=== PATIENT | female | born 1935 | race Caucasian/White ===

== ENCOUNTER 2017-01-16 17:00 | Inpatient (IN) ==
--- NOTE | 2017-01-16 17:36 | PROVIDER DOCUMENTATION ---
This chart was entered by Rufina Martinez Scribe, acting as scribe for Max Ruth MD. HPI-Neurological Disorder - General Source: EMS - History of Present Illness-Neuro Headache Location: denies: frontal, temporal, occipital, parietal, global Severity: reports: moderate Onset/Duration: reports: just prior to arrival Timing: reports: still present Context: reports: other (AMS and LUE weakness) Character of Altered Mental Status: reports: confused Any recent trauma/injury?: reports: none Character of Deficits: reports: new weakness (LUE), vision problem/glaucoma ( decreased vision in left eye) New weakness or altered sensation location:: reports: LUE Cognitive Baseline: other (unknown) Gait Baseline: walks without assistance Associated Symptoms: reports: vision changes (decreased vision in left eye), weakness (LUE), other (AMS). denies: short of breath, headache, decreased ability to walk or stand, fainting, dizziness, confusion, chest pain, neck/back pain, fatigue, fever/chills, insomnia, loss of consciousness, muscle spasms, nausea, numbness in legs/feet, paresthesia, diaphoretic, ringing in ears, seizures, sleepy, slurred speech, tingling in legs/feet, trouble walking, vomiting Similar Symptoms Previously?: No Recently seen or treated by another doctor?: No <Max Ruth - Last Filed: 01/16/17 17:44> <Broderick Arango I - Last Filed: 01/16/17 20:15> - General Stated Complaint: AMS Time Seen by Provider: 01/16/17 17:12 Allergies/Adverse Reactions: Patient Allergies Allergy/AdvReac Type Severity Reaction Status Date / Time acetaminophen [From MIDRIN] Allergy Severe ANAPHYLAXIS Verified 01/16/17 17:14 aspirin Allergy Severe ANAPHYLAXIS Verified 01/16/17 17:14 Penicillins Allergy Severe ANAPHYLAXIS Verified 01/16/17 17:14 Cephalosporins Allergy Unknown Unknown Verified 01/16/17 17:14 dichloralphenazone Allergy Unknown Unknown Verified 01/16/17 17:14 [From MIDRIN] divalproex sodium Allergy Unknown Unknown Verified 01/16/17 17:14 [From Depakote] eszopiclone [From Lunesta] Allergy Unknown Unknown Verified 01/16/17 17:14 ibuprofen [From Motrin] Allergy Unknown Unknown Verified 01/16/17 17:14 iodine Allergy Unknown Unknown Verified 01/16/17 17:14 isometheptene mucate * Allergy Unknown Unknown Verified 01/16/17 17:14 [From MIDRIN] naproxen Allergy Unknown Unknown Verified 01/16/17 17:14 piroxicam [From Feldene] Allergy Unknown Unknown Verified 01/16/17 17:14 clonidine AdvReac Unknown Unknown Verified 01/16/17 17:14 Home Medications: Home Medication List Medication Instructions Recorded Confirmed Last Taken Type Alprazolam [Xanax] 0.5 mg PO BID 03/31/12 01/16/17 10/05/15 21:00 History Amlodipine [Norvasc] 5 mg PO DAILY 03/31/12 01/16/17 10/06/15 09:00 History Carvedilol [Coreg] 6.25 mg PO BID 03/31/12 01/16/17 10/06/15 09:00 History Levothyroxine [Synthroid] 50 microgm PO DAILY 03/31/12 01/16/17 10/06/15 06:00 History Memantine HCl [Namenda] 28 mg PO DAILY 03/31/12 10/06/15 10/06/15 09:00 History Mirtazapine [Remeron] 15 mg PO QHS 03/31/12 01/16/17 10/05/15 21:00 History SIMVAstatin [Zocor] 40 mg PO QHS 03/31/12 01/16/17 10/05/15 21:00 History Trazodone [Desyrel] 100 mg PO QHS 03/31/12 01/16/17 10/05/15 21:00 History Clopidogrel [Plavix] 75 mg PO DAILY 06/16/12 01/16/17 10/06/15 09:00 History Pantoprazole [Protonix] 40 mg PO DAILY@0600 06/16/12 01/16/17 10/06/15 06:00 History Donepezil [Aricept] 10 mg PO QHS 12/01/13 01/16/17 10/05/15 21:00 History Latanoprost 0.005% Oph Soln 1 drop BOTH EYES HS 12/16/13 01/16/17 10/05/15 21: 00 History [Xalatan 0.005% Oph Soln] Albuterol [Albuterol Neb] 2.5 mg INH RTQ4H #0 neb 12/20/13 01/16/17 Unknown Rx Potassium Chloride E.r. [Klor-Con] 10 meq PO BID #0 12/20/13 01/16/17 10/06/15 09:00 Rx Amlodipine [Norvasc] 5 mg PO DAILY 01/16/17 01/16/17 Unknown History Duloxetine [Cymbalta] 30 mg PO DAILY 01/16/17 01/16/17 Unknown History Fluticasone/Salmeterol [Advair 1 IN BID 01/16/17 Unknown History 250-50 Diskus] Hydrocodone/Acetaminophen [[place] 5 mg PO Q8H PRN PRN 01/16/17 01/16/17 Unknown History 5-325 Tablet] Megestrol Acetate [Megace] 400 mg PO BID 01/16/17 01/16/17 Unknown History Multivitamin with Minerals 1 PO DAILY 01/16/17 Unknown History [Multiple Vitamin] - History of Present Illness-Neuro Nature of Presenting Problem: Pt is a 81 y/o F presents to the ED with AMS and LUE weakness. EMS states symptoms started this afternoon after physical therapy. EMS states Pt's blood sugar was elevated and she is not diabetic. EMS states no recent head injury or fall. (Rufina Martinez) Review of Systems - Adult - REVIEW OF SYSTEMS - ADULT Constitutional: reports: no symptoms reported Eyes: reports: decreased vision (left). denies: discharge, blurred vision, double vision Ears, Nose, Mouth & Throat: reports: no symptoms reported Cardiovascular: reports: no symptoms reported Respiratory: reports: no symptoms reported Gastrointestinal: reports: no symptoms reported Genitourinary: reports: no symptoms reported Musculoskeletal: reports: muscle weakness (LUE). denies: back pain, neck pain Integumentary: reports: no symptoms reported Neurological: reports: other (LUE weakness and AMS). denies: dizziness/vertigo , headache/migraines, numbness, seizure, syncope Psychiatric: reports: no symptoms reported Endocrine: reports: no symptoms reported Hematologic/Lymphatic: reports: no symptoms reported Allergic/Immunologic: reports: no symptoms reported All Other Systems: Reviewed and Negative <Max Ruth - Last Filed: 01/16/17 17:44> - REVIEW OF SYSTEMS - ADULT Constitutional: reports: no symptoms reported <Broderick Arango I - Last Filed: 01/16/17 20:15> Past History - Adult - PAST MEDICAL HISTORY-ADULT Review of Records: reports: Nursing Assessment Review, Medications Reviewed, Social history reviewed & non-contributory. Major Childhood Illnesses: reports: denies history Cardiovascular: reports: CAD, CHF, HTN, hyperlipidemia, [place] Respiratory: reports: COPD Gastrointestinal: reports: GERD Obstetrical/Gynecological: reports: denies history Genitourinary: reports: kidney disease, chronic UTI's Musculoskeletal: reports: denies history Neurological: reports: dementia Psychiatric: reports: anxiety, depression Endocrine/Immune: reports: thyroid disorder (hypo) Other Conditions: reports: denies history - PRIOR SURGERIES/PROCEDURES Surgical/Procedure History: reports: CABG, cardiac stent, pacemaker, hysterectomy, back/neck (back) - PRIOR HOSPITALIZATIONS Prior Hospitalizations: reports: for similar symptoms - IMMUNIZATION STATUS Childhood Immunizations: See Nurse Assessment Flu Vaccine: See Nurse Assessment - FAMILY HISTORY Family History: reviewed, not pertinent - SOCIAL HISTORY Smoking: denies Substance Use: denies Number of drinks per typical drinking period:: 2 drinks Living Situation: family <FarazMax - Last Filed: 01/16/17 17:44> - PAST MEDICAL HISTORY-ADULT Review of Records: reports: Old Records Reviewed, Nursing Assessment Review, Medications Reviewed, Social history reviewed & non-contributory. <Broderick Arango I - Last Filed: 01/16/17 20:15> Physical Exam- Neurological - Physical Exam-Neuro General Appearance: appears well, alert, no apparent distress. negative: lethargic, slow to respond Eye Exam: left eye: vision changes (decreased vision ), bilateral eye: PERRL, EOMI HENMT: normal ENT inspection. negative: angioedema, hearing deficit Head Injury: no evidence of injury. negative: ecchymosis, lacerations Neck: normal inspection. negative: lymphadenopathy, tender lateral Respiratory: chest non-tender, lungs clear, normal breath sounds. negative: crackles, wheezing Cardiovascular: normal peripheral pulses, regular rate, rhythm. negative: tachycardia, systolic murmur Abdominal Exam: normal bowel sounds, non tender, soft. negative: distended, rebound Lymphatic: no adenopathy. negative: enlargement, streaking Extremity: normal inspection. 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 negative: abnormal speech Coordination/Gait: normal finger to nose (right), ABN nose to finger (L) Motor/Sensory: no sensory deficit, no pronator drift, weak motor strength LUE Neurologic: facial droop (right), motor weakness (LUE). negative: aphasia, sensory deficit Integumentary: normal color, normal turgor, warm/dry. negative: diaphoresis, ecchymosis, erythema, laceration(s) Psych/Mental Status: normal mood/affect. negative: paranoid, tearful <Max Ruth - Last Filed: 01/16/17 17:44> - Physical Exam-Neuro General Appearance: appears well <Broderick Arango I - Last Filed: 01/16/17 20:15> Progress - CHANGE OF SHIFT REPORT (ED Provider) Report Given and Care Transferred to:: Dr. Arango Time of Transfer: 17:50 Items Pending: Labs, XRAY Results, CT/MRI Results <Max Ruth - Last Filed: 01/16/17 17:44> - PLAN OF CARE/RESULTS Result Diagrams: 01/16/17 18:05 01/16/17 18:05 <Broderick Arango I - Last Filed: 01/16/17 20:15> - PLAN OF CARE/RESULTS Progress/Plan/Lab Results: Vital Signs - 8 hr 01/16/17 17:06 Pulse Rate 67 Respiratory Rate 22 Blood Pressure 166/098 O2 Sat by Pulse Oximetry 99 Laboratory Results - last 24 hr 01/16/17 01/16/17 01/16/17 17:30 18:05 18:05 WBC 6.17 RBC 3.98 L Hgb 12.7 Hct 37.0 MCV 93.0 MCH 31.9 H MCHC 34.3 RDW Std Deviation 12.6 Plt Count 183 MPV 12.2 H Immature Gran % (Auto) 0.2 Neut % (Auto) 55.1 Lymph % (Auto) 33.2 [place] % (Auto) 7.1 Eos % (Auto) 3.4 Baso % (Auto) 1.0 H Immature Gran # (Auto) 0.01 Neut # (Auto) 3.40 Lymph # (Auto) 2.05 [place] # (Auto) 0.44 Eos # (Auto) 0.21 Baso # (Auto) 0.06 PT INR APTT (Factor Assay) Sodium 131 L Potassium 3.9 Chloride 93 L Carbon Dioxide 23 L Anion Gap 14 BUN 23 H Creatinine 1.1 H Estimated GFR/1.73 m2 48 BUN/Creatinine Ratio 21 Glucose 540 H* Calculated Osmolality 291 Calcium 9.0 Total Bilirubin 0.40 AST 11 ALT 12 Alkaline Phosphatase 63 Total Protein 7.3 Albumin 3.8 Globulin 4.0 Albumin/Globulin Ratio 1.0 Urine Source CLEAN CATCH Urine Color YELLOW Urine Clarity CLEAR Urine pH 7.0 Ur Specific [place] 1.005 Urine Protein NEGATIVE Urine Ketones NEGATIVE Urine Blood NEGATIVE Urine Nitrite NEGATIVE Urine Bilirubin NEGATIVE Urine Urobilinogen NORMAL Urine Microscopic RBC <10 Urine WBC NEGATIVE Urine Microscopic WBC <10 Ur Epithelial Cells <10 Urine Crystals NONE SEEN Urine Bacteria NEGATIVE Urine Casts NONE SEEN Urine Yeast NONE SEEN Urine Glucose 3+(500 mg/dL) A 01/16/17 18:05 WBC RBC Hgb Hct MCV MCH MCHC RDW Std Deviation Plt Count MPV Immature Gran % (Auto) Neut % (Auto) Lymph % (Auto) [place] % (Auto) Eos % (Auto) Baso % (Auto) Immature Gran # (Auto) Neut # (Auto) Lymph # (Auto) [place] # (Auto) Eos # (Auto) Baso # (Auto) PT 13.6 INR 0.96 APTT (Factor Assay) 27.5 Sodium Potassium Chloride Carbon Dioxide Anion Gap BUN Creatinine Estimated GFR/1.73 m2 BUN/Creatinine Ratio Glucose Calculated Osmolality Calcium Total Bilirubin AST ALT Alkaline Phosphatase Total Protein Albumin Globulin Albumin/Globulin Ratio Urine Source Urine Color Urine Clarity Urine pH Ur Specific [place] Urine Protein Urine Ketones Urine Blood Urine Nitrite Urine Bilirubin Urine Urobilinogen Urine Microscopic RBC Urine WBC Urine Microscopic WBC Ur Epithelial Cells Urine Crystals Urine Bacteria Urine Casts Urine Yeast Urine Glucose Orders Category Date Time Status Cardiac Monitoring DIRECTED Care 01/16/17 17:04 Active Finger Stick Blood Sugar (ED) DIRECTED Care 01/16/17 17:04 Active Oxygen Therapy- ED Nursing DIRECTED Care 01/16/17 17:04 Active Saline Loc NOW Care 01/16/17 17:04 Active CHEST-1 VIEW [RAD] Stat Exams 01/16/17 17:[address] HEAD W/O CONTRAST [CT] Stat Exams 01/16/17 17:04 Completed CBC WITH ELECTRONIC DIFF [HEME] Stat Lab 01/16/17 18:05 Completed COMPREHENSIVE METABOLIC PANEL [CHEM] Stat Lab 01/16/17 18:[address]IME WITH INR [address] [COAG] Stat Lab 01/16/17 18:[address] [COAG] Stat Lab 01/16/17 18:[address] W/POSS RFLX CULT [URINALYSIS] Stat Lab 01/16/17 17:30 Completed 0.9% Sodium Chloride Inj [Ns] 1,000 ml Med 01/16/17 19:22 Discontinued IV Wide Open Lorazepam [Ativan] Med 01/16/17 18:57 Discontinued 1 mg IV NOW ONE Pulse Oximetry Stat Oth 01/16/17 17:04 Active EKG [EKG] Stat Ther 01/16/17 17:04 Draft Transfer/Admit Order [TRANSFER] Routine Transfer 01/16/17 20:08 Ordered Departure <Max uRth - Last Filed: 01/16/17 17:44> - Departure Date of Disposition Decision: 01/16/17 Time of Disposition Decision: 20:13 Certified Medical Emergency: Emergent - Critical Care Note This patient required my direct & personal management of CC.: No <Broderick Arango I - Last Filed: 01/16/17 20:15> - Departure DIAGNOSIS: Hyperosmolar non-ketotic state in patient with type 2 diabetes mellitus, Altered mental status Disposition: ADMITTED INPATIENT 09 Condition: Stable Referrals and Follow-Ups: None,PCP [Primary Care Provider] - Attestation - Physician/ FEROZ Attestation The physician spent face to face time with patient:: Yes Advanced Practice Provider documentation review:: Supervising physician onsite and consulted in the evaluation and care of this patient. The physician did have a face to face encounter with the patient. <Broderick Arango I - Last Filed: 01/16/17 20:15> This chart was documented by the indicated scribe, (Rufina Martinez Scribe) and accurately reflects the services I performed and decisions made by me, Max Ruth MD, as attested by the provider's signature.
--- NOTE | 2017-01-16 17:49 | EKG Report ---
Test Performed on : 01/16/2017 5:22:20 PM Test Reason : AMS Blood Pressure : / mmHG Vent. Rate : 065 BPM Atrial Rate : 065 BPM P-R Int : 184 ms QRS Dur : 126 ms QT Int : 440 ms P-R-T Axes : 045 065 -88 degrees QTc Int : 457 ms Normal sinus rhythm. Nonspecific intraventricular block Cannot rule out Anteroseptal infarct (cited on or before 06-OCT-2015) T wave abnormality, consider inferolateral ischemia Abnormal ECG When compared with ECG of 16-JAN-2017 17:21, (Unconfirmed) premature supraventricular complexes. are no longer present Unconfirmed Result
[2017-01-16 18:08] LABS: URINE CULTURE PL NEEDED? NO
[2017-01-16 18:11] LABS: MANUAL DIFF NEEDED? NO
[2017-01-16 18:14] LABS: EOS# 0.21 X1000 (0.0-0.7); EOS% 3.4 % (0.0-10.0); HEMOGLOBIN 12.7 g/dL (12.0-16.0); IMM GRAN# 0.01 X1000 (0.0-0.04); IMM GRAN% 0.2 % (0.0-0.5); LYMPH# 2.05 X1000 (1.2-3.4); LYMPH% 33.2 % (20.5-51.1); MCH 31.9 PG (27-31); MCHC 34.3 g/dL (33-37); MONO# 0.44 X1000 (0.11-0.59); MONO% 7.1 % (1.7-9.3); MPV 12.2 FL (7.4-10.4); NEUT% 55.1 % (42.2-75.2); PLT 183 X1000 (130-400); RBC 3.98 XMIL (4.2-5.4)
[2017-01-16 18:19] LABS: BILIRUBIN URINE NEGATIVE (NEGATIVE); BLOOD URINE NEGATIVE (NEGATIVE); CLARITY CLEAR (CLEAR); COLOR YELLOW; LEUKOCYTES URINE NEGATIVE (NEGATIVE); NITRITE URINE NEGATIVE (NEGATIVE); PROTEIN URINE NEGATIVE (NEGATIVE); SP GRAVITY URINE 1.005; UROBILINOGEN URINE NORMAL
[2017-01-16 18:29] LABS: INR 0.96 (0.86-1.15); PROTIME 13.6 Seconds (12.1-15.5); PTT PL 27.5 Seconds (22.6-43.9)
--- NOTE | 2017-01-16 18:38 | Diag Imaging Result Doc PS360 ---
EXAM: CT HEAD W/O CONTRAST HISTORY: ams TECHNIQUE: CT of the head without contrast COMMENT: There is a lacune in the left cerebellar hemisphere. There are calcifications in the vertebral and internal carotid arteries as well as the basilar artery. There is extensive abnormal lucency throughout the white matter of both cerebral hemispheres. There is no evidence of bleed, mass effect, or abnormal extra-axial fluid collections. Compared to 10/06/2015 there has been no significant change. IMPRESSION: Extensive chronic ischemic change. No evidence of acute intracranial disease. Electronically signed by Eloy Huerta 01/16/2017 6:36 PM
--- NOTE | 2017-01-16 18:39 | Diag Imaging Result Doc PS360 ---
EXAM: CHEST-1 VIEW HISTORY: AMS TECHNIQUE: Erect AP portable COMMENT: There is no evidence of acute pulmonary disease. Heart size and pulmonary vascularity are within normal limits. Compared to 10/06/2015 there has been no significant change. IMPRESSION: Stable chest. Electronically signed by Eloy Huerta 01/16/2017 6:37 PM
[2017-01-16 18:53] LABS: ALBUMIN 3.8 g/dL (3.5-5.0); POTASSIUM 3.9 mmol/L (3.5-5.1); TOTAL BILIRUBIN 0.4 mg/dL (0.20-1.00); TOTAL PROTEIN 7.3 g/dL (6.3-8.3)
[2017-01-16] MEDS ORDERED: ATIVAN IV ONE (18:57)
[2017-01-16 18:59] LABS: URINE CAST NONE SEEN /LPF; URINE CRYSTAL NONE SEEN /HPF; URINE EPITHELIAL CELLS <10 /HPF (<10); URINE RBC <10 /HPF (<10); URINE SOURCE CLEAN CATCH; URINE WBC <10 /HPF (<10)
[2017-01-16] MEDS ORDERED: NS 1,000 ML IV ONE ×2 (19:22→21:21)
[2017-01-16] MEDS ORDERED: HUMULIN R IV ONE (20:18)
[2017-01-17] MEDS ORDERED: HALDOL IV ONE (00:43)
[2017-01-17] MEDS ORDERED: HALDOL IV PRN (03:05)
[2017-01-17] MEDS: NS 1,000 ML IV SCH (06:36)
[2017-01-17] MEDS: HUMULIN R SUBQ SCH ×2 (06:44→12:07)
[2017-01-17 06:59] LABS: MANUAL DIFF NEEDED? NO
[2017-01-17 07:05] LABS: BASO% 0.6 % (0.0-0.8); EOS# 0.11 X1000 (0.0-0.7); EOS% 1.3 % (0.0-10.0); HEMOGLOBIN 11.6 g/dL (12.0-16.0); IMM GRAN# 0.01 X1000 (0.0-0.04); IMM GRAN% 0.1 % (0.0-0.5); LYMPH# 2.62 X1000 (1.2-3.4); LYMPH% 30.9 % (20.5-51.1); MCH 31.4 PG (27-31); MCHC 34.1 g/dL (33-37); MCV 92.1 FL (81-99); MONO# 0.53 X1000 (0.11-0.59); MONO% 6.3 % (1.7-9.3); MPV 11.9 FL (7.4-10.4); NEUT% 60.8 % (42.2-75.2); PLT 189 X1000 (130-400); RBC 3.69 XMIL (4.2-5.4)
[2017-01-17 07:22] LABS: CALCIUM 8.6 mg/dL (8.8-10.2); MAGNESIUM 1.7 mg/dL (1.5-2.7); POTASSIUM 3.3 mmol/L (3.5-5.1)
[2017-01-17 07:24] LABS: HEMOGLOBIN A1C 10.7 % (4.8-6.0)
[2017-01-17] MEDS ORDERED: NORCO-5 PO PRN (09:24)
[2017-01-17] MEDS ORDERED: NORVASC PO SCH (09:30)
[2017-01-17] MEDS ORDERED: XANAX PO SCH (09:30)
[2017-01-17] MEDS ORDERED: MEGACE PO SCH (09:30)
[2017-01-17] MEDS: ALBUTEROL NEB INH SCH ×4 (11:00→23:27)
[2017-01-17] MEDS: ADVAIR 250/50 DISKUS INH SCH ×2 (11:12→19:41)
[2017-01-17] MEDS: PLAVIX PO SCH (11:18)
[2017-01-17] MEDS: COREG PO SCH ×2 (11:18→20:12)
[2017-01-17] MEDS: GLUCOPHAGE PO SCH ×2 (11:18→21:15)
[2017-01-17] MEDS: CYMBALTA PO SCH (11:18)
[2017-01-17] MEDS: THERA M PLUS PO SCH (11:19)
[2017-01-17] MEDS: SYNTHROID PO SCH (11:19)
[2017-01-17] MEDS: KLOR-CON PO SCH ×2 (11:19→20:13)
--- NOTE | 2017-01-17 12:04 | HISTORY AND PHYSICAL ---
PRIMARY CARE PHYSICIAN: At her [facility]. CHIEF COMPLAINTS: Per [facility] staff: 1. Altered mental status. 2. Left upper extremity weakness. 3. Slurred speech. 4. Drooling. 5. Elevated blood sugar in an undiagnosed diabetic. HISTORY OF PRESENTING ILLNESS: This is an 81-year-old, female who presents from a local [facility] via EMS after the nursing staff noticed altered mental status, left upper extremity weakness, some slurred speech, and drooling. All of this began after she had a physical therapy session yesterday. So, EMS brought her to [facility] ER. On arrival, her laboratory data showed a sodium of 131, chloride 93, CO2 23, BUN of 23, with a creatinine of 1.1, blood sugar 540. Hemoglobin A1c was 10.7. Her urinalysis was negative. A chest x-ray showed a stable chest. A CT of the head showed extensive chronic ischemic changes but no evidence of an acute intracranial disease, so she was admitted for further evaluation and treatment for a new onset diabetes with hyperglycemia, non-ketoacidosis. PAST MEDICAL HISTORY: 1. Hypertension. 2. Alzheimer's dementia. 3. Hypothyroidism. 4. Dyslipidemia. 5. Osteoarthritis. 6. Coronary artery disease. PAST SURGICAL HISTORY: 1. Hysterectomy. 2. CABG. 3. Heart stent placement. 4. Pacemaker. 5. Back surgery. FAMILY HISTORY: Noncontributory. SOCIAL HISTORY: She currently lives at a local [facility]. Denies any tobacco, alcohol, or illicit drug use. ALLERGIES: 1. Acetaminophen. 2. Aspirin. 3. Penicillin. 4. Cephalosporins. 5. Midrin. 6. Depakote. 7. Lunesta. 8. Ibuprofen. 9. Iodine. 10. Feldene. 11. Clonidine. HOME MEDICATIONS: She takes: 1. Albuterol every 4 hours, nebulizer. 2. Xanax 0.5 mg p.o. b.i.d. 3. Norvasc 5 mg p.o. daily. 4. Coreg 6.25 mg p.o. b.i.d. 5. Plavix 75 mg p.o. daily. 6. Donepezil 10 mg p.o. at bedtime. 7. Duloxetine 30 mg p.o. daily. 8. Advair Diskus 250/50, 1 inhalation b.i.d. 9. [place] 5 one p.o. every 8 hours p.r.n. 10. Xalatan 0.005% ophthalmic drop to both eyes at bedtime. 11. Synthroid 50 mcg p.o. daily. 12. Megace 400 mg p.o. b.i.d. 13. Namenda 28 mg p.o. daily. 14. Remeron 15 mg p.o. at bedtime. 15. Multivitamin 1 p.o. daily. 16. Protonix 40 mg p.o. daily. 17. Potassium 10 mEq p.o. b.i.d. 18. Simvastatin 40 mg p.o. at bedtime. 19. Trazodone 100 mg p.o. at bedtime at that time. LABORATORY DATA: CBC: Showed a white blood cell count of 6.17, hemoglobin 12.7 , hematocrit 37, platelets 183,000. PT and INR: 13.6 and 0.96. Chem: Sodium of 131, potassium 3.9, chloride 93, CO2 23, BUN of 23, creatinine 1.1. Glucose was 540. Repeat labs this a.m. show her sodium is up to 136, potassium 3.3, chloride 102 , CO2 23, BUN of 16, creatinine 0.9, anion gap is now 11. Glucose is 190. Hemoglobin A1c was noted to be 10.7. Magnesium of 1.7. Urinalysis: Negative except for 3+ glucose. IMAGING STUDIES: Chest x-ray: Showed a stable chest. Head CT: Showed extensive chronic ischemic changes, but no evidence of an acute intracranial disease. EKG: Shows normal sinus rhythm at 65. REVIEW OF SYSTEMS: Difficult to obtain from patient due to her Alzheimer's. But according to [facility] records and the ER record, she had slurred speech, drooling, left upper extremity weakness and an altered mental status. Otherwise, negative review of systems. PHYSICAL EXAMINATION: VITALS: On arrival, she had a pulse of 67, respirations 22, blood pressure 166/ 98, saturating 99% on room air. GENERAL: This is an 81-year-old, female who is lying in the bed. Answers questions but not appropriately. HEENT: Normocephalic and atraumatic. Pupils are equal, round, reactive to light. The extraocular movements are intact. The oropharynx and nares are clear. NECK: Supple. LUNGS: Clear to auscultation bilaterally with equal lung expansion and chest wall movement. HEART: With regular rate and rhythm. No murmurs, rubs, or gallops. ABDOMEN: Soft, nontender, nondistended. Bowel sounds are present x4 quadrants. EXTREMITIES: No clubbing, cyanosis, or edema. NEUROLOGICAL: The cranial nerves 2-12 appear grossly intact. ASSESSMENT: 1. Hyperosmolar, non-ketotic state. Diabetes type 2, new onset. 2. Hypokalemia. 3. Alzheimer's dementia. 4. Hypertension. OUR PLAN: She was admitted to the medical unit at [place]. Placed on a diabetic diet, normal saline at 75 mL an hour. Pattern blood sugars with sliding scale insulin. We will start her on metformin 500 mg p.o. b.i.d., and recheck a CBC and a BMP in the a.m. and we will continue her home medications. It is noted that while in the ER the patient received 2 normal saline boluses of 1000 mL each. This is SAKSHI Brewer, dictating for Dr. Khan. Dictated by SAKSHI Brewer for Efrem Khan MD cc: SAKSHI Brewer MD I have seen and examined this patient. I have provided face to face evaluation. I have reviewed her lab works and imagine studies. Patient presents with symptomatic hyperglycemia. Newly diagnosed DM II and slurred speech possibly due to the metabolic derangements. I agree with the above plan. Also refer to the details of progress notes today. TIFF HURD
[2017-01-17] MEDS: HUMULIN R (PARKWAY) SUBQ SCH ×2 (17:45→21:15)
--- NOTE | 2017-01-17 18:54 | PROGRESS NOTE ---
DATE: 01/17/2017 SUBJECTIVE: Today Ms. Gallagher refers to be doing a little better. There was a daughter and another family member at the room at the time of encounter. According to the family members Ms. Gallagher had slurred speech and the mouth was deviated at 1 point at home before she was brought in and over here in the emergency room the family member also confirmed that she witnessed an episode whereby the mouth has deviated to the right side which resolved spontaneously. OBJECTIVE: Vital signs: Blood pressure is 124/63, pulse of 78, respirations 18, temperature 98.4 degrees. General: Ms. Gallagher is a 81-year-old female. She is in bed, is not in any remarkable distress. HEENT: Mucosa is pink and slightly dry. Anicteric. Acyanotic. Neck: Supple. Chest: Good air entry bilateral. No crepitations. No rhonchi. Cardiovascular: Regular rate and rhythm. Did not appreciate any murmur or any rubs. Abdomen: Soft, nontender. Bowel sounds are present. There is no hepatosplenomegaly. Extremities: No pedal edema. BAG END SEWER: Patient is awake, alert, more conversational, oriented x3 and I did not appreciate any focal neurological deficit. LABORATORY DATA: WBC is 8.47, hemoglobin is 11.6, platelet count of 189,000. Chemistry is reviewed. Sodium is 136, potassium is 3.0, glucose is now 190, on admission it was 540. ASSESSMENT: 1. Severe uncontrolled diabetes mellitus with dehydration. 2. Episodes of slurred speech with subjective deviation of the mouth. This seems to have resolved. I am not sure if this was an episode of a transient ischemic attack or it was all related to the severe dehydration related to the uncontrolled diabetes mellitus. We however going to do the TIA workup to make sure that if it was we can prevent any major event. 3. History of Alzheimer dementia. Patient seems to be pretty functional. 4. Hypertension is controlled. 5. Diabetes mellitus which seems to be newly diagnosed. Patient has been started on metformin. We will continue with the sliding scale. So in general I think Ms Gallagher is looking much better. She does not show any signs of neurological deficit or focalization. We are going to do the MRI and MRAs of the brain and neck, an echocardiogram in the morning, hopefully get the sugar better control and then get Ms. Gallagher discharged hopefully on Thursday. cc: Efrem Khan MD
[2017-01-17] MEDS: ARICEPT PO SCH (20:12)
[2017-01-17] MEDS: DESYREL PO SCH (20:12)
[2017-01-17] MEDS: ZOCOR PO SCH (20:13)
[2017-01-17] MEDS: XALATAN 0.005% OPH SOLN BOTH EYES SCH (20:13)
[2017-01-17] MEDS: REMERON PO SCH (20:13)
[2017-01-17] MEDS: XANAX PO SCH (20:13)
[2017-01-17] MEDS ORDERED: LANTUS SUBQ SCH (21:00)
[2017-01-18] MEDS: ALBUTEROL NEB INH SCH ×6 (03:42→23:23)
[2017-01-18] MEDS: PROTONIX PO SCH (05:10)
[2017-01-18] MEDS: HUMULIN R (PARKWAY) SUBQ SCH ×3 (06:05→16:14)
[2017-01-18 07:38] LABS: MANUAL DIFF NEEDED? NO
[2017-01-18] MEDS: ADVAIR 250/50 DISKUS INH SCH ×2 (07:45→19:50)
[2017-01-18 07:59] LABS: CALCIUM 9.8 mg/dL (8.8-10.2); POTASSIUM 3.6 mmol/L (3.5-5.1)
[2017-01-18 09:13] LABS: BASO% 0.6 % (0.0-0.8); EOS# 0.14 X1000 (0.0-0.7); EOS% 1.1 % (0.0-10.0); HEMOGLOBIN 13.6 g/dL (12.0-16.0); IMM GRAN# 0.02 X1000 (0.0-0.04); IMM GRAN% 0.2 % (0.0-0.5); LYMPH# 1.53 X1000 (1.2-3.4); LYMPH% 15.3 % (20.5-51.1); MCH 32.1 PG (27-31); MCHC 34.3 g/dL (33-37); MCV 93.7 FL (81-99); MONO# 0.43 X1000 (0.11-0.59); MONO% 4.3 % (1.7-9.3); MPV 12.1 FL (7.4-10.4); NEUT% 78.1 % (42.2-75.2); PLT 203 X1000 (130-400); RBC 4.27 XMIL (4.2-5.4)
[2017-01-18] MEDS: KLOR-CON PO SCH ×2 (11:38→20:06)
[2017-01-18] MEDS: DITROPAN PO SCH ×2 (11:39→20:06)
[2017-01-18] MEDS: COREG PO SCH ×2 (11:39→20:05)
[2017-01-18] MEDS: SYNTHROID PO SCH (11:40)
[2017-01-18] MEDS: PLAVIX PO SCH (11:41)
[2017-01-18] MEDS: NORVASC PO SCH (11:41)
[2017-01-18] MEDS: FLOMAX PO SCH (11:41)
[2017-01-18] MEDS: THERA M PLUS PO SCH (11:41)
[2017-01-18] MEDS: NS 1,000 ML IV SCH (11:41)
[2017-01-18] MEDS: CYMBALTA PO SCH (11:41)
[2017-01-18] MEDS: GLUCOPHAGE PO SCH ×2 (11:41→20:05)
[2017-01-18] MEDS ORDERED: LANTUS INSULIN (PARKWAY) SUBQ SCH (16:23)
--- NOTE | 2017-01-18 17:26 | PROGRESS NOTE ---
DATE: 01/18/2017 SUBJECTIVE: Today Ms. Gallagher refers to be doing a lot better. She was actually sitting up on top of her bed without any complications. OBJECTIVE: Vital Signs: Stable. Blood pressure is 132/52, pulse of 73, respirations 18, temperature 98.2 degrees. General: Ms. Gallagher is an 81-year-old female. She was in bed. Not in any distress. HEENT: Mucosa is pink and moist. Anicteric. Acyanotic. Neck: Supple. Chest: Clear. Cardiovascular: Regular rate and rhythm. There are no murmurs, no rubs, no gallops. Abdomen: Soft, nontender. Extremities: No pedal edema. CUSHION SEWER: Patient is awake and alert and oriented x4. There is no focal neurological deficit. LABORATORY DATA: CBC is reviewed, completely unremarkable. Chemistry is reviewed. Sodium is 137, potassium is 3.6, chloride 100, bicarb is 23, creatinine is 1.3, glucose is 205. ASSESSMENT: 1. Severe uncontrolled diabetes mellitus with dehydration on presentation. The patient is a lot better. We are going to continue with gentle hydration and titrate her metformin to 850 b.i.d. today. Maintain her on the insulin only 10 units per day and see how her numbers look by tomorrow. 2. Recurrent episode of slurred speech with subjective deviation of the mouth to 1 side. This has completely resolved. We, however, are not sure if this was just secondary to the metabolic derangement or it was a TIA. We are waiting to do the MRI and MRA for the TIA workup and hopefully discharge the patient home tomorrow if the studies are normal. 3. History of Alzheimer's dementia. The patient does have very pretty baseline functionality. 4. Hypertension, uncontrolled. Adding amlodipine. 5. Newly diagnosed diabetes mellitus. The patient has been started on metformin and is also on glargine. Seems to be tolerating this. 6. Mild acute kidney injury secondary to dehydration. Will continue with gentle hydration. 7. Urinary retention. A bladder scan was done and patient was retaining almost 400. In and out catheterization was done. The patient did have a Bruno catheter so I am not sure if this is a form of bladder spasm or a neurogenic bladder from diabetic autonomic neuropathy. I have started the patient on tamsulosin and oxybutynin and will follow up with her during the course of her hospital stay. PLAN: So in general, I think Ms. Gallagehr is a lot better today. Blood pressure is a little high so we have added amlodipine. I think Ms. Gallagher has significantly improved. Glucose is much better. Hydration status is also improving. I think by tomorrow if her TIA workup is normal she can be discharged home to follow up with her primary care doctor. cc: Efrem Khan MD
[2017-01-18] MEDS: XANAX PO SCH (20:05)
[2017-01-18] MEDS: ZOCOR PO SCH (20:06)
[2017-01-18] MEDS: ARICEPT PO SCH (20:06)
[2017-01-18] MEDS: REMERON PO SCH (20:06)
[2017-01-18] MEDS: DESYREL PO SCH (20:06)
[2017-01-18] MEDS: XALATAN 0.005% OPH SOLN BOTH EYES SCH (21:26)
[2017-01-19] MEDS: ALBUTEROL NEB INH SCH ×3 (03:20→11:54)
[2017-01-19] MEDS: PROTONIX PO SCH (05:06)
[2017-01-19 06:57] LABS: CALCIUM 8.9 mg/dL (8.8-10.2); POTASSIUM 4.3 mmol/L (3.5-5.1)
[2017-01-19] MEDS ORDERED: SYNTHROID PO SCH (07:15)
[2017-01-19] MEDS: NS 1,000 ML IV SCH (07:58)
[2017-01-19] MEDS: ADVAIR 250/50 DISKUS INH SCH (08:02)
[2017-01-19] MEDS: NORVASC PO SCH (09:45)
[2017-01-19] MEDS: DITROPAN PO SCH (09:45)
[2017-01-19] MEDS: CYMBALTA PO SCH (09:46)
[2017-01-19] MEDS: KLOR-CON PO SCH (09:46)
[2017-01-19] MEDS: GLUCOPHAGE PO SCH (09:46)
[2017-01-19] MEDS: FLOMAX PO SCH (09:46)
[2017-01-19] MEDS: COREG PO SCH (09:46)
[2017-01-19] MEDS: THERA M PLUS PO SCH (09:46)
[2017-01-19] MEDS: PLAVIX PO SCH (09:46)
[2017-01-19 11:54] VITALS: BP 129/48
--- NOTE | 2017-01-19 12:48 | DISCHARGE SUMMARY ---
ADMISSION DATE: 01/16/2017 DISCHARGE DATE: 01/19/2017 DIAGNOSES: 1. Hyperosmolar-nonketotic state, diabetes type 2, new onset. 2. Hypokalemia. 3. Alzheimer dementia. 4. Hypertension. DIAGNOSTICS: 1. 01/16/2017 chest x-ray: Stable chest. No evidence of acute pulmonary disease. Heart size and pulmonary vascularity are within normal limits. 2. 01/16/2017 CT of the head: Extensive chronic ischemic changes. No evidence of acute intracranial disease. HOSPITAL COURSE: Ms. Gallagher presented to the emergency room complaining of altered mental status, slurred speech, and drooling. She was found to have a blood sugar of 540 with a A1c of 10. Of note, she has had no prior diabetes diagnoses. She was given IV hydration, placed on pattern blood glucose with sliding scale insulins. She was started on metformin b.i.d. and Lantus insulin. Blood sugars have been in the 100-218 range. She was noted to have a creatinine of 1.1, and has been 1.1-1.3 during the hospitalization, that is her baseline over the last 5 years. She did tolerate a diabetic with Glucerna well. MRI and MRA had been ordered, although, she did lose IV access and refused any further sticks. Therefore, this can be arranged on an outpatient basis per her facility physician at [place]. PHYSICAL EXAMINATION: Cardiovascular: Regular rate and rhythm. S1 and S2 are appreciated. Pulmonary: Breath sounds are clear with no increased work of breathing noted. Gastrointestinal: Abdomen is soft, nontender, nondistended. Bowel sounds in all 4 quadrants. Extremities: No clubbing, cyanosis, or edema. Calves are nontender. Pulses are palpable x4. Musculoskeletal: Good range of motion of joints. Neurologic: She is alert and oriented x3 with cranial nerves 2- 12 grossly intact. Discharge Vital Signs: Blood pressure is 129/48 with a heart rate of 60, respirations are 18, temperature is 98.3 degrees oral with room air saturations of 99%. DISCHARGE MEDICATIONS: Xanax 0.5 at bedtime, Cymbalta 30 mg daily, trazodone 100 mg at bedtime, Remeron 15 at bedtime, milk of magnesia 30 mL daily p.r.n., Coreg 6.25 p.o. b.i.d., Alphagan 0.2% ophthalmic solution, 1 drop to both eyes b.i.d., multivitamin daily, Namenda XR 1 cab daily, Plavix 75 mg daily, Norvasc 5 mg daily, Protonix 40 mg daily, Synthroid 50 mcg daily, Aricept 10 mg at bedtime, potassium chloride 10 mEq b.i.d., Advair 250/50 one puff b.i.d., Xalatan 0.005% ophthalmic solution, 1 drop both eyes at bedtime, Zocor 40 mg at bedtime, metformin 850 p.o. b.i.d., Flomax 0.4 p.o. daily, Lantus 10 units subcutaneous at bedtime. Check blood sugars checked per policy. She is being discharged back to [facility] in stable condition with family members present. Dictated by SAKSHI Murry for Jose Elias Tavarez MD cc: SAKSHI Murry MD
--- NOTE | 2017-01-19 16:12 | ECHO REPORT ---
ORDER DATE: 01/18/2017 INDICATION: Altered mental status, history of hypertension, coronary disease, coronary bypass. FINDINGS: 1. Right atrium appears normal in size. There are linear artifacts consistent with device leads noted in the right heart chambers. 2. Mild tricuspid regurgitation. RV systolic pressure 31. 3. Normal RV size and systolic function. 4. Mild pulmonic insufficiency. 5. Normal left atrial size at 3.2 cm. 6. No mitral prolapse. Trace mitral regurgitation. 7. Normal LV size with an end-diastolic dimension of 4.5. Mild left ventricular hypertrophy, with a posterior and interventricular septal wall thickness 1.2 cm each. Reduction in LV systolic function on the order of 40% with hypokinesis noted in the inferior and inferior- septal regions. 8. Aortic valve opens well. It is trileaflet. There is mild aortic insufficiency. No evidence of stenosis. 9. Aorta appears normal in visualized segments. 10. No pericardial effusion seen. cc: MD Efrem Reynoso MD
--- NOTE | 2017-01-19 20:16 | PROGRESS NOTE ---
DATE: 01/19/2017 ADDENDUM: discharge diagnosis and plan as per full dictation. The patient had an extremely poorly controlled diabetes upon presenting to the hospital. This has been much better controlled on prior discharge. Her blood sugars have been relatively stable. All of her neurologic symptoms have completely resolved. Unfortunately, the patient cannot have an MRI secondary to her pacemaker. Her blood pressures have been stable once adding amlodipine. We will discharge her home. She will follow up outpatient with her primary. cc: Jose Elias Tavarez MD
== END 2017-01-19 15:10 ==
LOC: P.ED 17:00 → SUATTDRO 21:14 → P.MEDSURG 21:14
PROVIDERS: ATTEND Family Medicine